=== PATIENT | male | born 1950 | race Hispanic/Latino ===

== ENCOUNTER 2018-07-03 11:28 | Day surgery (SDC) | payer OTHER ==
[2018-07-01 10:45] VITALS: BP 157/78
[2018-07-01 11:07] LABS: BASOPHILS % (AUTO) 0.6 % (0.0-5.0); EOSINOPHILS % (AUTO) 2.1 % (0.0-8.0); HEMATOCRIT 43.6 % (42-54); LYMPHOCYTES % (AUTO) 21.9 % (21.0-51.0); MEAN CORPUSCULAR HEMOGLOBIN 30.3 pg (27.0-33.0); MEAN CORPUSCULAR HGB CONC 33.4 g/dL (32.0-36.0); MEAN CORPUSCULAR VOLUME 90.7 fL (79-99); MONOCYTES % (AUTO) 10.4 % (3.0-13.0); NUCLEATED RED BLOOD CELLS 0.1 % (0.0-0.19); PLATELET COUNT (AUTO) 169 K/uL (130-400); RED BLOOD CELL COUNT(AUTO) 4.81 MIL/uL (4.50-6.20); RED CELL DISTRIBUTION WIDTH 13.7 % (11.0-15.5); WHITE BLOOD COUNT (AUTO) 5.4 K/uL (4.8-10.8)
[2018-07-01 11:27] LABS: CREATININE 1.1 mg/dL (0.5-1.5); POTASSIUM 4.7 mmol/L (3.5-5.1)
[2018-07-03] VITALS (17 sets, daily range): BP systolic 92–166; BP diastolic 43–94
[~2018-07-03] VITALS: Ht 175.3 cm; Wt 88.2 kg
[~2018-07-03 11:28] MED LIST: ALLO300T2 PO; CEFAZOLIN SODIUM 1 GM VIAL IVP SCH; LACTATED RINGERS 1000ML 1,000 ML IV SCH; LOSA50TA25 PO; METO50TA18 PO; ROSU20TA30 PO; TAMS0.4C32 PO
[2018-07-03] MEDS ORDERED: LIDOCAINE PF 2% 5ML ABBOJECT ONE ×2 (12:32→13:55)
[2018-07-03] MEDS ORDERED: SUCCINYLCHOLINE 200MG/10ML SYR ONE (12:32)
[2018-07-03] MEDS ORDERED: DEXAMETHASONE SOD PHOSPHATE 10MG/ML 1ML VIAL ONE ×2 (12:32→13:56)
[2018-07-03] MEDS ORDERED: ONDANSETRON HCL 4 MG/2 ML VIAL ONE (12:33)
[2018-07-03] MEDS ORDERED: GLYCOPYRROLATE 1 MG/5 ML SYRINGE ONE (12:33)
[2018-07-03] MEDS ORDERED: MIDAZOLAM HCL 1 MG/ML 2ML VIAL ONE (12:33)
[2018-07-03] MEDS ORDERED: ROCURONIUM 10MG/1ML SYR 10 MG/ML ML ONE ×2 (12:34→12:48)
[2018-07-03] MEDS ORDERED: PROPOFOL 10 MG/ML 20ML VIAL IV ONE (12:34)
[2018-07-03] MEDS ORDERED: NEOSTIGMINE 5MG/5ML SYR IV ONE (12:34)
[2018-07-03] MEDS ORDERED: FENTANYL CITRATE PF 50 MCG/1 ML 2ML VIAL ONE ×3 (12:35→14:49)
[2018-07-03] MEDS ORDERED: ROPIVACAINE 0.5% 5MG/ML 30ML IJ ONE (12:42)
[2018-07-03] MEDS ORDERED: CEFAZOLIN SODIUM 1 GM VIAL ONE (12:44)
[2018-07-03] MEDS ORDERED: BUPIVACAINE/EPI/PF 0.25% 50 ML VIAL ONE (13:43)
[2018-07-03] MEDS ORDERED: EPINEPHRINE 1 MG/ML 30ML VIAL IJ ONE (13:43)
[2018-07-03] MEDS ORDERED: SUCCINYLCHOLINE CHLORIDE 20 MG/ML 10 ML VIAL ONE (13:55)
== END 2018-07-03 17:02 | disposition home or self-care (01) ==
LOC: DAH 11:28
PROVIDERS: ATTEND Orthopaedic Surgery
DX: M75.101 Unspecified rotator cuff tear or rupture of right shoulder, not specified as traumatic (principal); M75.41 Impingement syndrome of right shoulder; S43.401A Unspecified sprain of right shoulder joint, initial encounter; X58.XXXA Exposure to other specified factors, initial encounter; Y93.9 Activity, unspecified; Y92.89 Other specified places as the place of occurrence of the external cause; Y99.9 Unspecified external cause status
CPT/HCPCS: 29806; 29824; 29826; 29827; 36415; 80048; 85025; 93005; A4450; A4565; A4649 ×5; A4930; A6223; C1713 ×2; J0171; J0330 ×2; J0690; J1100 ×2; J2001 ×2; J2250; J2405; J2704; J2710; J2795; J3010 ×3; J3490 ×2; J7120 ×2

== ENCOUNTER → 2022-01-23 | Outpatient (CLI) | payer MEDICARE ==
[~2022-01-23] MED LIST changes: -CEFAZOLIN SODIUM 1 GM VIAL IVP SCH; -LACTATED RINGERS 1000ML 1,000 ML IV SCH; -LOSA50TA25 PO; +LOSA50TA64 PO; -ROSU20TA30 PO; +ROSU20TA31 PO
== END | disposition home or self-care (01) ==
LOC: RAH 10:32
PROVIDERS: ATTEND Nurse Practitioner
DX: S83.232A Complex tear of medial meniscus, current injury, left knee, initial encounter (principal); M23.91 Unspecified internal derangement of right knee; M23.90 Unspecified internal derangement of unspecified knee; X58.XXXA Exposure to other specified factors, initial encounter; Y93.89 Activity, other specified; Y92.89 Other specified places as the place of occurrence of the external cause; Y99.8 Other external cause status
CPT/HCPCS: 73721

== ENCOUNTER → 2022-08-01 | Outpatient (CLI) | payer MEDICARE ==
[~2022-08-01] MED LIST changes: +CHLO25TA3 PO; +LOSA100T58 PO; +MELO-106 PO
== END | disposition home or self-care (01) ==
LOC: RAH 13:18
PROVIDERS: ATTEND Orthopaedic Surgery
DX: M17.11 Unilateral primary osteoarthritis, right knee (principal); M25.461 Effusion, right knee; M16.0 Bilateral primary osteoarthritis of hip
CPT/HCPCS: 73700

== ENCOUNTER 2022-08-08 06:45 | Observation (INO) | payer MEDICARE ==
[2022-08-02 10:58] LABS: BASOPHILS % (AUTO) 0.6 % (0.0-5.0); EOSINOPHILS % (AUTO) 1.5 % (0.0-8.0); HEMATOCRIT 38.7 % (42-54); LYMPHOCYTES % (AUTO) 18.8 % (21.0-51.0); MEAN CORPUSCULAR HEMOGLOBIN 30.7 pg (27.0-33.0); MEAN CORPUSCULAR HGB CONC 34.6 g/dL (32.0-36.0); MEAN CORPUSCULAR VOLUME 88.6 fL (79-99); MONOCYTES % (AUTO) 10.4 % (3.0-13.0); NEUTROPHILS % (AUTO) 68.5 % (40.0-77.0); PLATELET COUNT (AUTO) 175 K/uL (130-400); RED BLOOD CELL COUNT(AUTO) 4.37 MIL/uL (4.50-6.20); RED CELL DISTRIBUTION WIDTH 13.2 % (11.0-15.5); WHITE BLOOD COUNT (AUTO) 4.8 K/uL (4.8-10.8)
[2022-08-02 11:10] LABS: CREATININE 1.3 mg/dL (0.5-1.5); POTASSIUM 4.1 mmol/L (3.5-5.1)
[2022-08-02 11:29] LABS: INR 0.98 (0.85-1.15); PROTHROMBIN TIME 10.7 SEC (9.6-11.6)
[2022-08-02 11:30] LABS: PARTIAL THROMBOPLASTIN TIME 27.1 SEC (26.3-35.5)
[2022-08-03 15:27] VITALS: BP 129/67
[2022-08-08] VITALS (26 sets, daily range): BP systolic 92–147; BP diastolic 58–82
[~2022-08-08] VITALS: Ht 172.7 cm; Wt 86.5 kg
[2022-08-08] MEDS: CEFAZOLIN SODIUM 1 GM VIAL IVPB SCH ×2 (06:00→10:46)
[~2022-08-08 06:45] MED LIST changes: -LOSA50TA64 PO; -METO50TA18 PO; +TRANEXAMIC ACID 1000MG/10ML IV SCH
[2022-08-08] MEDS ORDERED: LACTATED RINGERS 1000ML 1,000 ML IV ONE (07:04)
[2022-08-08] MEDS ORDERED: CEFAZOLIN SODIUM 2 GM VIAL ONE (07:04)
[2022-08-08] MEDS: LACTATED RINGERS 1000ML 1,000 ML IV SCH ×2 (07:28→11:05)
[2022-08-08] MEDS ORDERED: TRANEXAMIC ACID 1000MG/10ML ONE (09:13)
[2022-08-08] MEDS ORDERED: BUPIVACAINE/PF 0.5% 30ML VIAL ONE (09:58)
[2022-08-08] MEDS ORDERED: ROCURONIUM 10MG/1ML SYR 10 MG/ML ML ONE (10:23)
[2022-08-08] MEDS ORDERED: LIDOCAINE PF 100MG/5ML (2%) SYRINGE 5ML ONE (10:23)
[2022-08-08] MEDS ORDERED: NEOSTIGMINE 5MG/5ML SYR IV ONE (10:23)
[2022-08-08] MEDS ORDERED: SUCCINYLCHOLINE CHLORIDE 20 MG/ML 10 ML VIAL ONE (10:23)
[2022-08-08] MEDS ORDERED: PROPOFOL 10 MG/ML 20ML VIAL IV ONE (10:23)
[2022-08-08] MEDS ORDERED: GLYCOPYRROLATE 1 MG/5 ML SYRINGE ONE (10:23)
[2022-08-08] MEDS ORDERED: FENTANYL CITRATE PF 50 MCG/1 ML 2ML VIAL ONE ×2 (10:24→12:54)
[2022-08-08] MEDS: TAMSULOSIN HCL 0.4 MG CAP.ER.24H PO SCH (10:49)
[2022-08-08] MEDS ORDERED: HYDROMORPHONE 1 MG INJ ONE (10:53)
[2022-08-08] MEDS ORDERED: ONDANSETRON 4MG INJ ONE (10:54)
[2022-08-08] MEDS ORDERED: POTASSIUM CHLORIDE 20MEQ/100ML 100 ML IV PRN (12:30)
[2022-08-08] MEDS ORDERED: MORPHINE 4 MG SYG IVP PRN (12:30)
[2022-08-08] MEDS ORDERED: LIDOCAINE HCL-MPF 1% 2ML VIAL IV PRN (12:30)
[2022-08-08] MEDS: ACETAMINOPHEN 1,000 MG/100 ML VIAL IV SCH ×2 (12:30→21:31)
[2022-08-08] MEDS ORDERED: ONDANSETRON 4MG INJ IVP PRN (12:30)
[2022-08-08] MEDS ORDERED: HYDROCODONE/ACETAMINOPHEN 10/325 MG TAB PO PRN (12:30)
[2022-08-08] MEDS ORDERED: KCL 20 MEQ ERTAB PO PRN (12:30)
[2022-08-08] MEDS ORDERED: POTASSIUM CHLORIDE 10% ELIXIR 20 MEQ/15 ML UDCUP PO PRN (12:30)
[2022-08-08] MEDS ORDERED: HYDROCODONE/ACETAMINOPHEN 5/325 MG TAB PO PRN (12:30)
[2022-08-08] MEDS ORDERED: KETOROLAC 30MG VIAL (30MG/ML) ONE (12:54)
[2022-08-08] MEDS: 0.9%NACL 1000ML 1,000 ML IV SCH ×2 (14:19→21:32)
[2022-08-08] MEDS: IBUPROFEN 800MG + NS 250ML IV SCH ×2 (14:19→23:23)
[2022-08-08] MEDS: CEFAZOLIN SODIUM 1 GM VIAL IVP SCH (16:46)
[2022-08-08] MEDS: TRAMADOL HCL 50 MG TABLET PO SCH ×2 (18:00→23:27)
[2022-08-08] MEDS ORDERED: ATORVASTATIN 40 MG TABLET PO SCH (21:00)
[2022-08-08] MEDS: ASPIRIN 81 MG EC TAB PO SCH (21:30)
[2022-08-08] MEDS: FAMOTIDINE 20MG TAB PO SCH (21:31)
[2022-08-09 00:19] VITALS: BP 138/89
[2022-08-09 04:10] VITALS: BP 123/65
[2022-08-09] MEDS: CEFAZOLIN SODIUM 1 GM VIAL IVP SCH (04:33)
[2022-08-09 04:38] LABS: HEMATOCRIT 34.4 % (42-54); RED BLOOD CELL COUNT(AUTO) 3.78 MIL/uL (4.50-6.20); RED CELL DISTRIBUTION WIDTH 13.2 % (11.0-15.5); WHITE BLOOD COUNT (AUTO) 7.8 K/uL (4.8-10.8)
[2022-08-09 04:44] LABS: CREATININE 1.3 mg/dL (0.5-1.5); POTASSIUM 3.7 mmol/L (3.5-5.1)
[2022-08-09] MEDS: TRAMADOL HCL 50 MG TABLET PO SCH ×2 (06:15→12:18)
[2022-08-09 08:00] VITALS: BP 122/64
[2022-08-09] MEDS: 0.9%NACL 1000ML 1,000 ML IV SCH (08:30)
[2022-08-09] MEDS ORDERED: POLYETHYLENE GLYCOL 3350 17 GM POWD.PACK PO SCH (09:00)
[2022-08-09] MEDS ORDERED: ALLOPURINOL 300 MG TABLET PO SCH (09:00)
[2022-08-09] MEDS ORDERED: HYDROCHLOROTHIAZIDE 25 MG TABLET PO SCH (09:00)
[2022-08-09] MEDS ORDERED: LOSARTAN 100 MG TABLET PO SCH (09:00)
[2022-08-09] MEDS: ASPIRIN 81 MG EC TAB PO SCH (09:15)
[2022-08-09] MEDS: FAMOTIDINE 20MG TAB PO SCH (09:15)
[2022-08-09] MEDS: TAMSULOSIN HCL 0.4 MG CAP.ER.24H PO SCH (09:15)
[2022-08-09 12:00] VITALS: BP 126/67
[2022-08-09 15:00] VITALS: BP 137/67
[2022-08-11] MEDS ORDERED: BISACODYL 10 MG SUPP.RECT RC PRN (12:30)
== END 2022-08-09 15:30 | disposition home or self-care (01) ==
LOC: DAH 06:45 → DAHIP 06:46 → 4AH 14:01
PROVIDERS: ADMIT Orthopaedic Surgery; ATTEND Orthopaedic Surgery
DX: M17.11 Unilateral primary osteoarthritis, right knee (principal); Z20.822 Contact with and (suspected) exposure to COVID-19; M87.051 Idiopathic aseptic necrosis of right femur; I10 Essential (primary) hypertension; N40.0 Benign prostatic hyperplasia without lower urinary tract symptoms; Z79.899 Other long term (current) drug therapy
CPT/HCPCS: 80048 ×2; 85025; 85610; 85730; 87426; 36415 ×2; 27447; 0055T; 96365; 96366 ×2; 96375 ×2; 97161; 97039 ×3; 97530 ×2; 96376; 85027; 97116 ×2; A6260; G0378 ×24; A4663; J7030 ×2; A4649 ×4; J7120; J3010 ×2; J0690 ×2; J1170; J3490 ×3; J2710; J0330; J2001; J2704; J2405 ×2; J1885; J1741; G0168; A6255; A6254; A5120; A4215; A4223; A4222; A4221; C1713 ×2; C1776; J2270

== ENCOUNTER 2022-10-24 06:06 | Day surgery (SDC) | payer MEDICARE ==
[2022-10-18 10:39] LABS: BASOPHILS % (AUTO) 0.2 % (0.0-5.0); EOSINOPHILS % (AUTO) 1.4 % (0.0-8.0); HEMATOCRIT 40.4 % (42-54); LYMPHOCYTES % (AUTO) 20.2 % (21.0-51.0); MEAN CORPUSCULAR HEMOGLOBIN 30.5 pg (27.0-33.0); MEAN CORPUSCULAR HGB CONC 32.9 g/dL (32.0-36.0); MEAN CORPUSCULAR VOLUME 92.7 fL (79-99); PLATELET COUNT (AUTO) 149 K/uL (130-400); RED BLOOD CELL COUNT(AUTO) 4.36 MIL/uL (4.50-6.20); WHITE BLOOD COUNT (AUTO) 4.9 K/uL (4.8-10.8)
[2022-10-18 10:40] VITALS: BP 131/64
[2022-10-18 10:51] LABS: CREATININE 1.3 mg/dL (0.5-1.5); POTASSIUM 3.8 mmol/L (3.5-5.1)
[2022-10-24] VITALS (18 sets, daily range): BP systolic 108–159; BP diastolic 46–82
[~2022-10-24] VITALS: Ht 172.7 cm; Wt 85.1 kg
[~2022-10-24 06:06] MED LIST changes: +CEFAZOLIN SODIUM 2 GM VIAL IVPB SCH; -MELO-106 PO; +NAPROXEN PO; -TRANEXAMIC ACID 1000MG/10ML IV SCH
[2022-10-24] MEDS ORDERED: LACTATED RINGERS 1000ML 1,000 ML IV ONE (06:27)
[2022-10-24] MEDS ORDERED: LIDOCAINE HCL 1% 20 ML VIAL ONE (06:53)
[2022-10-24] MEDS ORDERED: PROPOFOL 10 MG/ML 20ML VIAL IV ONE (07:06)
[2022-10-24] MEDS ORDERED: ROCURONIUM 10MG/1ML SYR 10 MG/ML ML ONE (07:07)
[2022-10-24] MEDS ORDERED: ONDANSETRON 4MG INJ ONE (07:07)
[2022-10-24] MEDS ORDERED: MIDAZOLAM HCL 1 MG/ML 2ML VIAL ONE (07:07)
[2022-10-24] MEDS ORDERED: FENTANYL CITRATE PF 50 MCG/1 ML 2ML VIAL ONE (07:07)
[2022-10-24] MEDS ORDERED: CEFAZOLIN SODIUM 2 GM VIAL IVPB ONE (07:33)
[2022-10-24] MEDS ORDERED: EPHEDRINE SULFATE 50 MG/ML AMPULE ONE (07:38)
[2022-10-24] MEDS ORDERED: LIDOCAINE HCL 1% 20 ML VIAL MISC ONE (07:53)
== END 2022-10-24 10:20 | disposition home or self-care (01) ==
LOC: DAH 06:06
PROVIDERS: ATTEND Orthopaedic Surgery
DX: S83.232A Complex tear of medial meniscus, current injury, left knee, initial encounter (principal); Z20.822 Contact with and (suspected) exposure to COVID-19; M17.12 Unilateral primary osteoarthritis, left knee; M94.262 Chondromalacia, left knee; M65.862 Other synovitis and tenosynovitis, left lower leg; M25.462 Effusion, left knee; M25.762 Osteophyte, left knee; I10 Essential (primary) hypertension; M10.9 Gout, unspecified; Z83.3 Family history of diabetes mellitus; Z80.8 Family history of malignant neoplasm of other organs or systems; X58.XXXA Exposure to other specified factors, initial encounter; Y93.89 Activity, other specified; Y92.89 Other specified places as the place of occurrence of the external cause; Y99.8 Other external cause status
CPT/HCPCS: 80048; 85025; 87426; 36415; 93005; 29881; A6260; A4663; A4606; J7120; J3010; J3490; J2250; J2704; J2405; J0690 ×2; A6223; A4649 ×2; A5120; A4215; A4223; A4222; A4221; A6450

== ENCOUNTER 2025-06-25 11:52 | Observation (INO) | payer MEDICARE ==
[~2025-06-25] VITALS: Ht 172.7 cm; Wt 77.8 kg
[~2025-06-25 11:52] MED LIST changes: -CEFAZOLIN SODIUM 2 GM VIAL IVPB SCH; -LOSA100T58 PO; +LOSA100T59 PO; -ROSU20TA31 PO; +ROSU20TA98 PO
--- NOTE | 2025-06-25 12:17 | HP ---
[facility] HISTORY AND PHYSICAL Date of Service: Jun 25, 2025 Time of Service: 12:17 HISTORY OF PRESENT ILLNESS: 74-year-old male with past medical history of hypertension, BPH who presented to the hospital secondary to urinary retention. Patient was seen by his primary urologist today Dr. Kc secondary to problems with urination. He had a bladder scan performed which was notable for urinary retention. He had subsequently Gilliam catheter placed with drainage of around 7000 mL urine. The patient states he has not noticed any symptoms of urinary retention. He states he has been urinating but with decreased quantity. He denies any fever, chills, dysuria, hematuria, abdominal pain, nausea, vomiting. He was following with his urologist today. He had a colonoscopy done around a week ago which was benign per patient. He denies any changes in his appetite, melena, hematochezia, hematemesis. He has had problems with constipation at home. He denies any falls, syncopal episode. Denied any chest pain, shortness of breath, cough. He took his medications in the morning prior to coming to the hospital. Due to significant amount of urinary output the patient was recommended to be admitted to the hospital for further monitoring. Patient was sent from Urology Clinic as a direct admission. On Presentation to the ED patient's temperature was 97.5, heart rate was in the 50s, respiratory rate was 16, blood pressure was 147/69, patient was saturating 98% on room air. REVIEW OF SYSTEMS CONSTITUTIONAL: Denies fevers, chills, or night sweats. No unintentional weight loss reported. NEUROLOGICAL: Denies headache, amaurosis fugax, motor weakness, sensory deficit, vertigo/spinning sensation, gait abnormalities, or tremors. ENT: No hearing loss, otalgia, otorrhea, rhinitis, rhinorrhea, hoarseness, or sore throat. CARDIOVASCULAR: Denies any exertional angina, dyspnea on exertion, orthopnea, paroxysmal nocturnal dyspnea, palpitations, life-threatening arrhythmias, claudication. PULMONARY: Denies any shortness of breath, cough, phlegm/sputum, hemoptysis, pleuritic chest pain. SLEEP: Denies morning headaches, daytime somnolence or napping. Denies difficulty falling asleep, staying asleep, waking from sleep. Denies knowledge of snoring. GASTROINTESTINAL: Denies any type of dysphagia to either liquids or solids. Denies nausea, vomiting, pyrosis, early satiety, abdominal pain, diarrhea, or changes in stool consistency or caliber. Denies coffee-ground emesis, hemat emesis, hematochezia, or melanotic stools. Positive For constipation GENITOURINARY: Denies frequency, urgency, nocturia, hematuria or incontinence (Storage/Irritative symptoms.) Positive for decreased urinary output, urinary retention ENDOCRINOLOGIC: Denies polyuria, polydipsia, polyphagia or heat/cold intolerances. HEMATOLOGIC: Denies thrombophilia/previous clots, or coagulopathy/bleeding disorders. ONCOLOGIC: Denies personal history of malignancy. DERMATOLOGIC: Denies rashes or pruritus. PSYCHIATRIC: Denies any suicidal or homicidal ideation. Denies hallucinations. PAST MEDICAL HISTORY: Hypertension, BPH PAST SURGICAL HISTORY: History of right shoulder rotator cuff surgery History of knee surgery PAST SOCIAL HISTORY: Denied any smoking, alcohol, drug use FAMILY HISTORY: Denied any pertinent family history Coded Allergies: No Known Allergies (Unverified Allergy, Unknown, 07/01/18) PHYSICAL EXAM GENERAL APPEARANCE: The patient is awake, alert, and oriented, in no acute cardiopulmonary distress. NEUROLOGICAL: Cranial nerves II-XII grossly intact. Motor is 5/5 in bilateral upper and lower extremities proximal to distal. No sensory deficits. HEENT: Face is symmetric. Pupils are equal and reactive. Extraocular movements are intact. NECK: Supple. No JVD. No thyromegaly. No submental, submandibular, pre- /postauricular, occipital or supraclavicular lymphadenopathy. CHEST: Normal chest expansion. No Telemetry. LUNGS: Absence of any rales, rhonchi or any wheezing. CARDIOVASCULAR: Regular. S1 and S2 normal. No appreciable rubs, murmurs or gallops. ABDOMEN: Soft, nontender, and nondistended. There is no rebound, voluntary guarding, or rigidity. : Deferred. No Gilliam. EXTREMITIES: Non-edematous and not cyanotic. No clubbing. Good capillary refill. SKIN: No skin breakdown. Vital Sign (Last 24 Hours) 06/25/25 11:53 Temp 97.5 Pulse 56 Resp 16 B/P (MAP) 147/69 Pulse Ox 98 O2 Delivery Room Air O2 Flow Rate 0 LABS: Labs are currently ordered DIAGNOSTICS / RADIOLOGY: [ ] ASSESSMENT: Urinary retention status post Gilliam catheter placement with drainage of around 7 L urine BPH Hypertension History of recent colonoscopy Constipation PLAN: - patient to be admitted to medical-surgical unit telemetry -in reference to urinary retention. Patient will continue on Gilliam catheter placement. The patient to be started on NS for gentle hydration. We will check her CBC, BMP. Obtain a CT abdomen pelvis. We will kindly request consultation with Urology. -obtain home medications which will be reconciled once available -check TSH, hemoglobin A1c -further orders per hospitalization course Advanced Care Planning Which of the following were discussed: Hospice care: Yes __ No _x_ No __ Advance directives: Yes __ No __ Other discussions: Discussed with who?: patient (Patient, family or surrogates) Voluntary nature of this service was explained to the patient? Yes _x_ No __ Amount of time spent: 25 minutes EDDIE Ritchie MD, MD Jun 25, 2025 12:17
[2025-06-25] MEDS ORDERED: PUMP160C2 PO (12:25)
[2025-06-25] MEDS ORDERED: CHOL100034 PO (12:25)
[2025-06-25] MEDS ORDERED: LINA145C PO (12:25)
[2025-06-25] MEDS ORDERED: PoTASSium chloRIDE 20MEQ ER 20 MEQ ERTAB PO PRN (12:30)
[2025-06-25] MEDS ORDERED: PoTASSium chl 10% ELIXIR 20MEQ 20 MEQ/15 ML UDCUP PO PRN (12:30)
[2025-06-25] MEDS: 0.9%NACL 1000ML 1,000 ML IV SCH (12:30)
[2025-06-25] MEDS ORDERED: MAGNESIUM 2GM PREMIX 50ML 50 ML IV PRN (12:30)
[2025-06-25 12:53] LABS: IMMATURE GRANULOCYTE ABSOLUTE 0.02 K/uL (0-1); NUCLEATED RED BLOOD CELLS 0.0 % (0.0-0.19); PLATELET COUNT (AUTO) 139 K/uL (130-400); RED BLOOD CELL COUNT(AUTO) 4.32 MIL/uL (4.50-6.20); RED CELL DISTRIBUTION WIDTH 13.0 % (11.0-15.5); WHITE BLOOD COUNT (AUTO) 4.7 K/uL (4.8-10.8)
[2025-06-25 12:58] LABS: CREATININE 1.1 mg/dL (0.5-1.3); GLOMERULAR FILTR. RATE CALC 71.0 mL/min (>90); GLUCOSE,RANDOM 100.0 mg/dL (70-105); SODIUM SERUM 141.0 mmol/L (136-145); UREA NITROGEN, BLOOD 18.0 mg/dL (7-18)
[2025-06-25 13:00] LABS: APPEARANCE,URINE CLEAR (CLEAR); GLUCOSE, URINE (UA) NEGATIVE (NEGATIVE); LEUKOCYTE ESTERASE ,URINE NEGATIVE Leu/uL (NEGATIVE); NITRATE,URINE NEGATIVE (NEGATIVE); OCCULT BLOOD,URINE LARGE (NEGATIVE)
[2025-06-25 13:03] LABS: ADD UA MICROSCOPIC YES
[2025-06-25 13:07] LABS: SQUAMOUS EPITHELIAL CELL,UR RARE /HPF (0-2); YEAST,URINE BUDDING FEW /HPF (None Seen)
[2025-06-25 14:15] VITALS: BP 172/80; PULSE 57; RESP 20; TEMP 98.6
--- NOTE | 2025-06-25 14:57 | NUR ---
DCP:HOME Pt currently lives with his Lidia Good [phone]. Pt denies any DME, home health, or provider services. Pt states that he is able to complete ADLs independently. PCP is Filomena Guerrero and uses [facility] for any RX needs. At DC pt will want to go home and family can assist with transportation.
[2025-06-25 16:00] VITALS: O2SAT 99
[2025-06-25 16:23] VITALS: BP 152/79; PULSE 56; RESP 18; TEMP 97.7
[2025-06-25] MEDS ORDERED: LACTULOSE 20 GM/30 ML UDCUP PO PRN (18:30)
[2025-06-25 19:45] VITALS: BP 139/76; PULSE 60; RESP 18; TEMP 98.7
[2025-06-25 20:00] VITALS: O2SAT 99
[2025-06-25] MEDS: FAMOTIDINE 20MG VIAL IV SCH (20:38)
[2025-06-25 23:45] VITALS: BP 185/87; PULSE 55; RESP 18; TEMP 98.2
[2025-06-26 03:45] VITALS: BP 150/80; PULSE 55; RESP 20; TEMP 97.5
[2025-06-26 04:31] LABS: IMMATURE GRANULOCYTE ABSOLUTE 0.02 K/uL (0-1); NUCLEATED RED BLOOD CELLS 0.0 % (0.0-0.19); PLATELET COUNT (AUTO) 143 K/uL (130-400); RED BLOOD CELL COUNT(AUTO) 4.38 MIL/uL (4.50-6.20); RED CELL DISTRIBUTION WIDTH 12.8 % (11.0-15.5); WHITE BLOOD COUNT (AUTO) 6.0 K/uL (4.8-10.8)
[2025-06-26 04:52] LABS: CREATININE 1.0 mg/dL (0.5-1.3); GLOMERULAR FILTR. RATE CALC 79.0 mL/min (>90); GLUCOSE,RANDOM 94.0 mg/dL (70-105); SODIUM SERUM 141.0 mmol/L (136-145); UREA NITROGEN, BLOOD 15.0 mg/dL (7-18)
[2025-06-26 07:00] VITALS: BP 146/80; PULSE 55; RESP 20; TEMP 97.8
[2025-06-26 08:00] VITALS: O2SAT 98
[2025-06-26] MEDS: Linaclotide (Linzess) 1 CAP PO SCH (09:41)
[2025-06-26 11:00] VITALS: BP 142/71; PULSE 62; RESP 20; TEMP 97
--- NOTE | 2025-06-26 12:06 | HMCIMG ---
EXAM: CT Abdomen and Pelvis Without IV contrast CLINICAL HISTORY: urinary retention s/p pierson TECHNIQUE: Axial computed tomography images of the abdomen and pelvis without intravenous contrast. CONTRAST: No IV contrast. COMPARISON: None provided. FINDINGS: LUNG BASES: The lung bases appear clear. No pleural effusions are seen. LIVER: Unremarkable. GALLBLADDER AND BILE DUCTS: The gallbladder appears within normal limits. No radioopaque gallstones are seen. No biliary ductal dilatation is evident. PANCREAS: Unremarkable. SPLEEN: Unremarkable. ADRENAL GLANDS: Unremarkable. KIDNEYS, URETERS, AND BLADDER: The kidneys appear within normal limits. There is no hydronephrosis or hydroureter. No urinary calculi are seen. Pierson's catheter is noted. STOMACH AND BOWEL: Unremarkable appearance of the stomach and bowel. No evidence of bowel obstruction. No evidence suggesting enteritis or colitis. APPENDIX: No evidence of acute appendicitis on CT examination. PERITONEUM: No free fluid. No free air. LYMPH NODES: No lymphadenopathy is evident. REPRODUCTIVE: Unremarkable as visualized. VASCULATURE: No evidence of abdominal aortic aneurysm. BONES: L4-L5 disc height loss with endplate Modic type changes and mild grade 1 anterior listhesis of L4 and L5. IMPRESSION: 1. No acute intraabdominal or pelvic findings. /[place]
[2025-06-26 16:00] VITALS: BP 122/69; PULSE 60; RESP 20; TEMP 98.4
--- NOTE | 2025-06-26 16:28 | DS ---
Discharge Summary Hospital Course Summary: The patient is a 74-year-old male with a significant past medical history of hypertension and benign prostatic hyperplasia (BPH) who presented to the hospital following an outpatient evaluation for urinary retention. He had been experiencing decreased urinary output for an indeterminate period but denied [facility] symptoms of retention such as suprapubic pain, dysuria, hematuria, fever, chills, or lower abdominal discomfort. He also reported a history of chronic constipation and had recently undergone a colonoscopy, which was reportedly benign. On the day of admission, he was evaluated by his primary urologist, Dr. Pete, who performed a bladder scan that revealed marked urinary retention. A Pierson catheter was placed in the clinic, resulting in the drainage of approximately 7 liters of urine, a volume far exceeding the typical threshold for concern and indicative of significant chronic retention. The patient was subsequently referred for direct hospital admission for further monitoring and management. Upon arrival to the emergency department, the patient was hemodynamically stable, with a temperature of 97.5F, heart rate in the 50s, respiratory rate of 16, blood pressure of 147/69 mmHg, and oxygen saturation of 98% on room air. Physical examination was notable for a distended bladder, but there was no evidence of peritonitis or acute distress. The patient was admitted and was maintained on Pierson catheter drainage, and gentle intravenous hydration with normal saline was initiated. CT abdomen was ordered, which showed no abnormal findings. Urology was consulted. Urologist, Dr. Pete, signed off on the case with the recommendation that the patient remain on Pierson catheter and follow up with him in the outpatient clinic in one week. The patient was discharged with instructions to Follow up with PCP within 2-3 days Follow up with Dr. Pete in 1 week for further assessment and possible catheter removal call office to confirm appoinment Keep the catheter secured to your thigh to avoid pulling Keep the drainage bag below the level of your bladder Maintain good hygiene Avoid heavy lifting Drink adequate amount of fluids Continue home medications Avoid meds that worsen urinary retention like decongestants, anti histamines,..... Monitor for symptoms like fever, chills, burning or worsening pelvic pain , abdominal distension, no urine draining into the bag greater than 2 hrs, blood in urine and seek immediate medical attention in such scenario Your CT showed L4-L5 disc degeneration with mild slippage [anterolisthesis] Avoid heavy lifting, maintain proper posture and follow up with your PCP Correctional Medicine Physician(s): Urology consult was done by Dr. Pete who reported that the patient is ok to d ischarge from urology standpoint with Pierson and follow up with Dr. Pete in 1 week after discharge. Procedure(s): [facility] [address] [place] [address] IMAGING REPORT Signed PATIENT: FLORENCIO GALLEGOS JR MR#: [id number] : 1950 SEX: M AGE: 74 LOCATION: 2DH ORDER 15 STATUS: ADM IN REPORT#: [id number] SERVICE 11 REASON: urinary retention s/p pierson ORDERING PHYSICIAN: EDDIE LANDON MD PROCEDURE: ABD PEL WO - CT ABDOMEN/PELVIS W/O CONTRAST EXAM: CT Abdomen and Pelvis Without IV contrast CLINICAL HISTORY: urinary retention s/p pierson TECHNIQUE: Axial computed tomography images of the abdomen and pelvis without intravenous contrast. CONTRAST: No IV contrast. COMPARISON: None provided. FINDINGS: LUNG BASES: The lung bases appear clear. No pleural effusions are seen. LIVER: Unremarkable. GALLBLADDER AND BILE DUCTS: The gallbladder appears within normal limits. No radioopaque gallstones are seen. No biliary ductal dilatation is evident. PANCREAS: Unremarkable. SPLEEN: Unremarkable. ADRENAL GLANDS: Unremarkable. KIDNEYS, URETERS, AND BLADDER: The kidneys appear within normal limits. There is no hydronephrosis or hydroureter. No urinary calculi are seen. Pierson's catheter is noted. STOMACH AND BOWEL: Unremarkable appearance of the stomach and bowel. No evidence of bowel obstruction. No evidence suggesting enteritis or colitis. APPENDIX: No evidence of acute appendicitis on CT examination. PERITONEUM: No free fluid. No free air. LYMPH NODES: No lymphadenopathy is evident. REPRODUCTIVE: Unremarkable as visualized. VASCULATURE: No evidence of abdominal aortic aneurysm. BONES: L4-L5 disc height loss with endplate Modic type changes and mild grade 1 anterior listhesis of L4 and L5. IMPRESSION: 1. No acute intraabdominal or pelvic findings. /[place] DICTATED BY: JEANIE SALINAS DO DATE: 06/25/251603 ELECTRONICALLY SIGNED BY: JEANIE SALINAS DO DATE: 06/25/251603 Assessment/Plan: ASSESSMENT: Urinary retention status post Pierson catheter placement with drainage of around 7 L urine BPH Hypertension History of recent colonoscopy Constipation Discharge Instructions: Follow up with PCP within 2-3 days Follow up with Dr. Pete in 1 week for further assessment and possible catheter removal call office to confirm appoinment Keep the catheter secured to your thigh to avoid pulling Keep the drainage bag below the level of your bladder Maintain good hygiene Avoid heavy lifting Drink adequate amount of fluids Continue home medications Avoid meds that worsen urinary retention like decongestants, anti histamines,..... Monitor for symptoms like fever, chills, burning or worsening pelvic pain , abdominal distension, no urine draining into the bag greater than 2 hrs, blood in urine and seek immediate medical attention in such scenario Your CT showed L4-L5 disc degeneration with mild slippage [anterolisthesis] Avoid heavy lifting, maintain proper posture and follow up with your PCP Home Medications: Reported Medications Pumpkin Seed Oil/Saw Grinnell (Saw Grinnell 160 mg Softgel) 160 Mg Capsule, 160 MG PO DAILY, CAP 06/25/25 Cholecalciferol (Vitamin D3) (Vitamin D3) 25 Mcg (1000 Unit) Tab.chew, 1 TAB PO DAILY for 30 Days, #30 TAB 0 Refills 06/25/25 Linaclotide (Linzess) 145 Mcg Capsule, 1 CAP PO DAILY for 30 Days, #30 CAP 0 R efills 06/25/25 [Naproxen] No Conflict Check, PO AD PRN for PAIN 10/18/22 Losartan Potassium (Losartan Potassium) 100 Mg Tablet, 100 MG PO AM, TAB 08/03/22 Chlorthalidone (Chlorthalidone) 25 Mg Tablet, 12.5 MG PO AM, TAB 08/03/22 Rosuvastatin Calcium (Rosuvastatin Calcium) 20 Mg Tablet, 20 MG PO HS, TAB 07/01/18 Tamsulosin HCl (Tamsulosin HCl) 0.4 Mg Cap.er.24h, 0.4 MG PO AM, CAPSULE. 07/01/18 Allopurinol (Allopurinol) 300 Mg Tablet, 300 MG PO AM, TAB 07/01/18 Continued Medications: Allopurinol (Allopurinol) 300 Mg Tablet 300 MG PO AM, TAB Chlorthalidone (Chlorthalidone) 25 Mg Tablet 12.5 MG PO AM, TAB Cholecalciferol (Vitamin D3) (Vitamin D3) 25 Mcg (1000 Unit) Tab.chew 1 TAB PO DAILY for 30 Days, #30 TAB 0 Refills Linaclotide (Linzess) 145 Mcg Capsule 1 CAP PO DAILY for 30 Days, #30 CAP 0 Refills Losartan Potassium (Losartan Potassium) 100 Mg Tablet 100 MG PO AM, TAB [Naproxen] () Unknown Dose PO AD PRN for PAIN Pumpkin Seed Oil/Saw Grinnell (Saw Grinnell 160 mg Softgel) 160 Mg Capsule 160 MG PO DAILY, CAP Rosuvastatin Calcium (Rosuvastatin Calcium) 20 Mg Tablet 20 MG PO HS, TAB Tamsulosin HCl (Tamsulosin HCl) 0.4 Mg Cap.er.24h 0.4 MG PO AM, CAPSULE. Time spent arranging discharge: 31-60 minutes ATTESTATION BY PHYSICIAN I have seen and examined the patient. I reviewed the documentation, medical decision making, and treatment plan as noted by the resident physician above. I agree with the findings and plan of care. Carlos Kurtz IV, MD, SHAJI MD Jun 26, 2025 16:28
--- NOTE | 2025-06-26 17:20 | NUR ---
PATIENT WAS GIVEN DISCHARGE INSTRUCTIONS AND VOICED UNDERSTANDING. FOLLOW UP APPT WITH PCP WAS PROVIDED AND FOLLOW UP WITH DR. VYAS WAS PENDING. CALL WAS PLACED TO DR. VYAS AND SPOKE WITH KIMBER BUT MENTIONED SHE WAS GOING TO CHECK IN WITH [facility] AND CALL BACK. TELE PACK WAS REMOVED AND RETURNED. PIV TO LEFT ANTECUBITAL WAS REMOVED WITH CATHETER INTACT AND DRY DRESSING WAS APPLIED ONCE BLEEDING STOPPED. PATIENT'S BELONGINGS WERE ACCOUNTED. PATIENT HAD LEG BAG ATTACHED IN 16FR MERAZ CATHETER THAT WAS PLACED AT DR. VYAS'S OFFICE 06/25/25. PATIENT WAS TAKEN DOWN TO PRIVATE VEHICLE VIA WHEEL CHAIR.
--- NOTE | 2025-06-27 05:42 | CONS ---
REQUESTING PHYSICIAN: Dr. Reyes. REASON FOR CONSULTATION: Urinary retention. HISTORY OF PRESENT ILLNESS: The patient is a 74-year-old male, referred to the hospital yesterday from my office because of massive urinary retention, painless with a postvoid residual of 7000 mL. The patient was admitted to the hospital for close monitoring, evaluation for postobstructive diuresis, and possible electrolyte imbalance. Overnight, the patient has been afebrile. Vital signs have been stable. Feels well with no pain. Urine is draining dark urine, which is gradually clearing up. The patient feels well. ALLERGIES: No known drug allergies. MEDICATIONS: His medications overnight have included IV hydration, p.r.n. pain medication, Protonix, acetaminophen, hydralazine, allopurinol, atorvastatin, and tamsulosin. PAST MEDICAL HISTORY: Hypertension and BPH. PAST SURGICAL HISTORY: Shoulder rotator cuff surgery and knee surgery. SOCIAL HISTORY: He does not smoke or drink. FAMILY HISTORY: Negative for kidney stones. REVIEW OF SYSTEMS: He has no shortness of breath. No chest pain. Appetite is good. No nausea, vomiting, concerns, or diarrhea. No headaches or dizziness. No nosebleed. No joint pain, joint swelling, limitation of movement, night sweats, fever, chills, or skin rash. PHYSICAL EXAMINATION: GENERAL: On exam, well-developed male in no distress whatsoever. VITAL SIGNS: Temperature 97, blood pressure 140/70, with a pulse of 56. NECK: Without adenopathy or supraclavicular masses palpable. LUNGS: Lung walker are clear to auscultation. HEART: Sounds are best heard in the fifth intercostal space. ABDOMEN: Scaphoid, soft, and nontender. No masses. BACK: No CVA tenderness. GENITALIA: Gilliam catheter is draining clear urine. LABORATORY DATA: The patient's available laboratory data today show a white count of 6, hematocrit of 39, and platelet count of 143. The patient's sodium is 141, potassium 3.7, BUN 18, and creatinine 1.1. IMAGING STUDIES: Imaging studies include a CT scan of the abdomen and pelvis. The official radiology report is pending; however, on my reading, the Gilliam catheter is in good position with the balloon in the bladder. The bladder is collapsed. There is no hydronephrosis or retroperitoneal adenopathy. ASSESSMENT: Urinary retention, 7000 mL secondly to that of neurogenic bladder essentially. RECOMMENDATIONS: 1. The patient has demonstrated no sign of electrolyte imbalance or postobstructive diuresis at this time. 2. The recommendations from Urology standpoint, the patient is cleared for discharge home and follow up will be in my office in about a week or so for a trial of void and evaluation of bladder emptying function. Concerns were answered. Thank you for the opportunity of providing consultation. TID: [id number] RECEIPT: [id number]
== END 2025-06-26 17:30 | disposition home or self-care (01) ==
LOC: EDH 11:52 → INTOOBSV 11:53 → UNDOADMOB 11:53 → EDHIP 11:53 → 2DH 14:22
PROVIDERS: ADMIT Internal Medicine; ATTEND Internal Medicine
DX: R33.8 Other retention of urine (principal); N40.1 Benign prostatic hyperplasia with lower urinary tract symptoms; I10 Essential (primary) hypertension; K59.09 Other constipation; Z79.899 Other long term (current) drug therapy; Z98.890 Other specified postprocedural states
CPT/HCPCS: 96374; 96361 ×2; 83036; 84443; 80048 ×2; 85025 ×2; 86850; 86900; 86901; 81001; 36415 ×2; 74176; J1308; J7030; G0378 ×10; G0379